=== PATIENT | female | born 1985 | race Two or more races ===

== ENCOUNTER → 2024-07-26 | Outpatient (CLI) | payer BC, SELFPAY ==
--- NOTE | 2024-07-26 13:30 | XR_ITS ---
Examination: Pelvic ultrasound, transabdominal, complete Technique: Transabdominal ultrasound of the pelvis performed using grayscale imaging Date and time of exam: July 26, 2024 1307 hours INDICATIONS: Pelvic pain beginning 3 months ago, pelvic sonogram June 23, 2024 16 x 17 x 15 mm left ovarian cyst FINDINGS: Uterus 13.7 x 3.4 x 6.1 cm No uterine mass or intrauterine gestation Endometrial stripe 0.3 cm Right ovary 2.8 x 1.6 x 2.1 cm arterial flow Left ovary 3.8 x 2.8 x 3.0 cm arterial flow small follicles IMPRESSION: No uterine mass or intrauterine gestation Small left ovarian subcentimeter follicles
--- NOTE | 2024-07-26 13:30 | XR_ITS ---
Examination: Transvaginal ultrasound of the pelvis, complete Technique: Transvaginal sonographic images pelvis performed using jin scale imaging Exam date and time: July 26, 2024 1317 hours INDICATIONS: 17 mm left ovarian cyst on ultrasound June 23, 2024, pelvic pain 3 months FINDINGS: Uterus 9.3 x 4.6 x 6.1 cm No uterine mass or intrauterine gestation Endometrial stripe 0.6 cm Right ovary 2.4 x 3.1 x 2.2 cm arterial flow small follicles Left ovary 2.1 x 2.8 x 2.1 cm arterial flow small follicles IMPRESSION: Negative examination.
== END | disposition home or self-care (01) ==
LOC: CDIM 13:02
PROVIDERS: PCP Family Medicine; Referring Provider Family Medicine; Visit Provider Family Medicine
DX: R10.2 Pelvic and perineal pain (principal)
CPT/HCPCS: 76830; 76856

== ENCOUNTER → 2024-11-10 | Outpatient (CLI) | payer BC, SELFPAY ==
[2024-11-10 11:13] LABS: Thyroid Stimulating Hormone 0.07 uIU/mL (0.55-4.78)
== END | disposition home or self-care (01) ==
PROVIDERS: PCP Family Medicine; Referring Provider Family Medicine; Visit Provider Family Medicine
DX: E03.9 Hypothyroidism, unspecified (principal)
CPT/HCPCS: 36415; 84443

== ENCOUNTER → 2025-01-01 | Outpatient (CLI) | payer BC, SELFPAY ==
[2025-01-01 09:10] LABS: Thyroid Stimulating Hormone 0.85 uIU/mL (0.55-4.78)
== END | disposition home or self-care (01) ==
PROVIDERS: PCP Family Medicine; Referring Provider Family Medicine; Visit Provider Family Medicine
DX: E03.9 Hypothyroidism, unspecified (principal)
CPT/HCPCS: 36415; 84443

== ENCOUNTER → 2025-07-09 | Outpatient (CLI) | payer BC, SELFPAY ==
[2025-07-09 12:32] LABS: Thyroid Stimulating Hormone 0.08 uIU/mL (0.55-4.78)
== END | disposition home or self-care (01) ==
LOC: COPL 11:28
PROVIDERS: PCP Family Medicine; Referring Provider Family Medicine; Visit Provider Family Medicine
DX: E03.9 Hypothyroidism, unspecified (principal)
CPT/HCPCS: 36415; 84443

== ENCOUNTER → 2025-08-03 | Outpatient (CLI) | payer BC, SELFPAY ==
[2025-08-03 12:24] LABS: Thyroid Stimulating Hormone 2.40 uIU/mL (0.55-4.78)
== END | disposition home or self-care (01) ==
LOC: COPL 10:52
PROVIDERS: PCP Family Medicine; Referring Provider Family Medicine; Visit Provider Family Medicine
DX: E03.9 Hypothyroidism, unspecified (principal)
CPT/HCPCS: 36415; 84443